=== PATIENT | female | born 1985 | race Caucasian/White ===

== ENCOUNTER 2018-05-10 13:13 | Emergency (ER) | payer MEDICAID, OTHER ==
[2018-05-10 13:52] VITALS: RESP 18; O2SAT 99; BMI 22.3
--- NOTE | 2018-05-10 15:27 | ED PDOC ---
Arrival/HPI - General Chief Complaint: ENT Problem Time Seen by Provider: 05/10/18 13:54 Historian: Patient - History of Present Illness Narrative History of Present Illness (Text): 05/10/18 13:56 32 year old female, with no significant past medical history, who presents to the emergency department complaining of a sore throat, left ear pain, generalized weakness, very big swollen gland on left side and losing her balance /falling on Tuesday. Patient notes she got up to go to the bathroom on Tuesday, when she fell and hit her head. Patient reports fever for last couple of days and loss of appetite. Patient denies any other complaints. Time/Duration: > week Symptom Onset: Sudden Symptom Course: Unchanged Activities at Onset: Light Context: Home Past Medical History - Provider Review Nursing Documentation Reviewed: Yes - Psychiatric Hx Substance Use: No - Anesthesia Hx Anesthesia: Yes Hx Anesthesia Reactions: No Hx Malignant Hyperthermia: No Family/Social History - Physician Review Nursing Documentation Reviewed: Yes Family/Social History: No Known Family HX Smoking Status: Light Smoker < 10 Cigarettes Daily Hx Alcohol Use: Yes Frequency of alcohol use: Socially Hx Substance Use: No Allergies/Home Meds Allergies/Adverse Reactions: Allergies No Known Allergies Allergy (Verified 05/10/18 14:32) Review of Systems - Physician Review All systems were reviewed & negative as marked: Yes - Review of Systems Constitutional: Fatigue (generalized weakness), Fevers (patient notes fever for past couple of days). absent: Normal Eyes: Normal ENT: Sore Throat, Other (Patient notes left ear pain and a very big swollen gland on left side of neck.). absent: Normal Respiratory: Normal. absent: SOB, Cough Cardiovascular: Normal. absent: Chest Pain Gastrointestinal: Appetite Changes (patient notes loss of appetite). absent: Normal, Diarrhea, Nausea, Vomiting Genitourinary Female: Normal Musculoskeletal: Normal. absent: Back Pain, Neck Pain Skin: Normal Neurological: Normal Endocrine: Normal Hemo/Lymphatic: Normal Psychiatric: Normal Physical Exam Vital Signs Reviewed: Yes Vital Signs Temp Pulse Resp BP Pulse Ox 05/10/18 19:48 98.2 F 61 18 118/78 99 05/10/18 18:26 98.5 F 66 18 115/74 99 05/10/18 16:23 98.7 F 65 18 117/78 99 05/10/18 15:14 99.3 F 68 18 113/75 99 05/10/18 13:51 98.5 F 72 18 115/84 99 Temperature: Afebrile Blood Pressure: Normal Pulse: Regular Respiratory Rate: Normal Appearance: Positive for: Well-Appearing, Non-Toxic Pain Distress: None Mental Status: Positive for: Alert and Oriented X 3 - Systems Exam Head: Present: Atraumatic, Normocephalic Pupils: Present: PERRL Extroacular Muscles: Present: EOMI Conjunctiva: Present: Normal Mouth: Present: Moist Mucous Membranes Neck: Present: Normal Range of Motion, Other (Super large lymph node in left anterior chain) Respiratory/Chest: Present: Clear to Auscultation, Good Air Exchange. No: Respiratory Distress, Accessory Muscle Use Cardiovascular: Present: Regular Rate and Rhythm, Normal S1, S2. No: Murmurs Abdomen: No: Tenderness, Distention, Peritoneal Signs Back: Present: Normal Inspection Upper Extremity: Present: Normal Inspection. No: Cyanosis, Edema Lower Extremity: Present: Normal Inspection. No: Edema Neurological: Present: GCS=15, CN II-XII Intact, Speech Normal Skin: Present: Warm, Dry, Normal Color. No: Rashes Psychiatric: Present: Alert, Oriented x 3, Normal Insight, Normal Concentration Medical Decision Making ED Course and Treatment: 05/10/18 13:56 Impression: 32 year old female who presents to the emergency department complaining of sore throat, left ear pain, really big swollen gland on left side and fever for last couple of days. Differential Diagnosis included but are not limited to: Pharyngitis vs. Peritonsillar abscess. Plan: -- Labs -- CT of head w/o contrast -- CT of neck soft tissue w/ contrast -- Blood culture -- Rapid Strep Group A antigen -- Reassess and disposition Progress Notes: 05/10/18 18:[address] without Contrast: Creator : Sara Daniel MD FINDINGS: HEMORRHAGE:No intracranial hemorrhage. BRAIN: No mass effect or edema. No atrophy or chronic microvascular ischemic changes. VENTRICLES: No hydrocephalus. CALVARIUM: Unremarkable. PARANASAL SINUSES: Unremarkable as visualized. No significant inflammatory changes. MASTOID AIR CELLS: Unremarkable as visualized. No inflammatory changes. OTHER FINDINGS: None. IMPRESSION: No acute intracranial pathology identified. Neck CT with Contrast: Creator : Beau Whitaker MD FINDINGS: NASOPHARYNX: Mild asymmetric soft tissue swelling lower nasopharynx without focal mass or discrete parapharyngeal or prevertebral abscess. SUPRAHYOID NECK: Asymmetric enlargement of the left lingual and palate seen tonsil. The inflammatory changes extend to the level of the nasopharynx. No parapharyngeal or tonsillar abscess identified. INFRAHYOID NECK: Unremarkable larynx, hypopharynx, and supraglottic space. Vocal cords intact. MASS: None. GLANDS: Parotid and submandibular glands unremarkable. Normal size thyroid gland , without nodule. LYMPH NODES: No significant lymphadenopathy identified. CERVICAL SPINE: No fracture or focal lesion. VASCULAR STRUCTURES: Unremarkable. OTHER FINDINGS: None. IMPRESSION: Tonsillar enlargement without discrete tonsillar or parapharyngeal abscess. The findings are asymmetric involving the left greater than right nasopharynx and oral pharyngeal regions. - Lab Interpretations Lab Results: 05/10/18 15:10 05/10/18 15:10 Lab Results 05/10/18 15:26: pO2 34, VBG pH 7.37, VBG pCO2 48.0, VBG HCO3 27.7, VBG Total CO2 29.2 H, VBG O2 Sat (Calc) 71.7 H, VBG Base Excess 1.7, VBG Potassium 3.6, Glucose 86, Lactate 0.8, FiO2 21.0, Sodium 137.0, Chloride 103.0, Venous Blood Potassium 3.6 05/10/18 15:10: Beta HCG, Quant < 2.39 05/10/18 15:10: Sodium 138, Potassium 3.8, Chloride 102, Carbon Dioxide 27, Anion Gap 13, BUN 11, Creatinine 0.6 L, Est GFR ( Amer) > 60, Est GFR ( Non-Af Amer) > 60, Random Glucose 89, Calcium 9.0, Phosphorus 3.7, Magnesium 1.9 , Total Bilirubin 0.4, AST 26, ALT 28, Alkaline Phosphatase 65, Total Protein 7.4, Albumin 4.2, Globulin 3.2, Albumin/Globulin Ratio 1.3 05/10/18 15:10: Grp A Beta Strep Ag Negative 05/10/18 15:10: WBC 10.5, RBC 4.59, Hgb 13.1, Hct 39.3, MCV 85.6, MCH 28.5, MCHC 33.3, RDW 13.6, Plt Count 306, MPV 8.3, Gran % 63.3, Lymph % (Auto) 26.5, [place] % (Auto) 4.9, Eos % (Auto) 5.0, Baso % (Auto) 0.3, Gran # 6.65 H, Lymph # ( Auto) 2.8, [place] # (Auto) 0.5, Eos # (Auto) 0.5, Baso # (Auto) 0.03 - RAD Interpretation Radiology Orders: 05/10/18 14:37 HEAD W/O CONTRAST [CT] Stat NECK SOFT TISSUE W/CONTRAST [CT] Stat - Medication Orders Current Medication Orders: Discontinued Medications Ampicillin Sodium/Sulbactam (Sodium 3 gm/ Sodium Chloride) 100 mls @ 100 mls/ hr IVPB STAT STA PRN Reason: Protocol Stop: 05/10/18 19:11 Last Admin: 05/10/18 18:43 Dose: 100 mls/hr eMAR Start Stop Document 05/10/18 18:43 EQ (Rec: 05/10/18 18:43 EQ [id number]) Intravenous Solution Start Date 05/10/18 Start Time 18:43 Methylprednisolone (Solu-Medrol) 125 mg IVP STAT STA Stop: 05/10/18 18:14 Last Admin: 05/10/18 18:43 Dose: 125 mg IVP Administration Document 05/10/18 18:43 EQ (Rec: 05/10/18 18:43 EQ [id number]) Charges for Administration # of IVP Administrations 1 - Scribe Statement The provider has reviewed the documentation as recorded by the Magalieibjolene uLis All medical record entries made by the Magalieibjolene were at my direction and personally dictated by me. I have reviewed the chart and agree that the record accurately reflects my personal performance of the history, physical exam, medical decision making, and the department course for this patient. I have also personally directed, reviewed, and agree with the discharge instructions and disposition. Disposition/Present on Arrival - Present on Arrival Any Indicators Present on Arrival: No History of DVT/PE: No History of Uncontrolled Diabetes: No Urinary Catheter: No History of Decub. Ulcer: No History Surgical Site Infection Following: None - Disposition Have Diagnosis and Disposition been Completed?: Yes Diagnosis: Pharyngitis, Cervical adenitis Disposition: HOME/ ROUTINE Disposition Time: 17:00 Patient Plan: Discharge Condition: GOOD Discharge Instructions (ExitCare): Sore Throat, Adult (DC) Additional Instructions: Yolanda - Please start the Augmentin tonight before bed. Use the motrin for pain. Return to us if problems. Follow up with your regular doctor later this week. Best- Dr. Steven Valle Prescriptions: Amoxicillin/Clavulanate [Augmentin 500 MG-125 MG] 1 tab PO TID #30 tab Ibuprofen [Motrin Tab] 800 mg PO TID #30 tab Referrals: Chip Rondon MD [Primary Care Provider] - Follow up with primary Forms: [facility] (Spanish), SCHOOL NOTE, WORK NOTE
[2018-05-10 15:32] LABS: VENOUS BLOOD GAS BASE EXCESS 1.7 mmol/L (0.0-2.0); VENOUS BLOOD GAS PO2 34 mm/Hg (30-55); VENOUS BLOOD PH 7.37 (7.32-7.43)
[2018-05-10 15:35] LABS: BASO # 0.03 K/mm3 (0.0-2.0); BASO % 0.3 % (0.0-3.0); EOS # 0.5 (0.0-0.7); GRAN # 6.65 (1.4-6.5); GRAN % 63.3 % (50.0-68.0); HEMOGLOBIN 13.1 g/dL (12.0-16.0); LYMPH # 2.8 (1.2-3.4); LYMPH % 26.5 % (22.0-35.0); MEAN CELL VOLUME 85.6 fl (80.0-105.0); MEAN CORPUSCULAR HEMOGLOBIN 28.5 pg (25.0-35.0); MEAN CORPUSCULAR HGB CONC 33.3 g/dl (31.0-37.0); MEAN PLATELET VOLUME 8.3 fl (7.0-11.0); MONO # 0.5 (0.1-0.6); MONO % 4.9 % (1.0-6.0); RBC 4.59 10^6/uL (3.5-6.1); RED CELL DISTRIBUTION WIDTH 13.6 % (11.5-14.5); WHITE BLOOD COUNT 10.5 10^3/ul (4.5-11.0)
[2018-05-10 15:43] LABS: ALB/GLOB RATIO 1.3 (1.1-1.8); ALBUMIN 4.2 g/dL (3.0-4.8); ALT/SGPT 28 U/L (7-56); AST/SGOT 26 U/L (14-36); BLOOD UREA NITROGEN 11 mg/dL (7-21); GFR NON-AFRICAN AMERICAN > 60
[2018-05-10] MEDS ORDERED: Iohexol 350 MG/100 ML VIAL ONE (17:27)
--- NOTE | 2018-05-10 17:55 | CT ---
Date of service: 05/10/2018 PROCEDURE: CT HEAD WITHOUT CONTRAST. HISTORY: Blunt Trauma to Right Orbit COMPARISON: None available. TECHNIQUE: Axial computed tomography images were obtained through the head/brain without intravenous contrast. Radiation dose: Total exam DLP = 741.24 mGy-cm. This CT exam was performed using one or more of the following dose reduction techniques: Automated exposure control, adjustment of the mA and/or kV according to patient size, and/or use of iterative reconstruction technique. FINDINGS: HEMORRHAGE: No intracranial hemorrhage. BRAIN: No mass effect or edema. No atrophy or chronic microvascular ischemic changes. VENTRICLES: No hydrocephalus. CALVARIUM: Unremarkable. PARANASAL SINUSES: Unremarkable as visualized. No significant inflammatory changes. MASTOID AIR CELLS: Unremarkable as visualized. No inflammatory changes. OTHER FINDINGS: None. IMPRESSION: No acute intracranial pathology identified.
--- NOTE | 2018-05-10 18:10 | CT ---
Date of service: 05/10/2018 PROCEDURE: CT NECK WITH CONTRAST HISTORY: Large L sided lymph node, ? Pharyngeal Asymmetry COMPARISON: None available. TECHNIQUE: CT of the neck with intravenous contrast. Coronal and sagittal reformats generated. Intravenous contrast dose: 100 cc Omnipaque 300 Radiation dose: DLP 499.41 mGy-cm This CT exam was performed using one or more of the following dose reduction techniques: Automated exposure control, adjustment of the mA and/or kV according to patient size, and/or use of iterative reconstruction technique. FINDINGS: NASOPHARYNX: Mild asymmetric soft tissue swelling lower nasopharynx without focal mass or discrete parapharyngeal or prevertebral abscess. SUPRAHYOID NECK: Asymmetric enlargement of the left lingual and palate seen tonsil. The inflammatory changes extend to the level of the nasopharynx. No parapharyngeal or tonsillar abscess identified. INFRAHYOID NECK: Unremarkable larynx, hypopharynx, and supraglottic space. Vocal cords intact. MASS: None. GLANDS: Parotid and submandibular glands unremarkable. Normal size thyroid gland, without nodule. LYMPH NODES: No significant lymphadenopathy identified. CERVICAL SPINE: No fracture or focal lesion. VASCULAR STRUCTURES: Unremarkable. OTHER FINDINGS: None. IMPRESSION: Tonsillar enlargement without discrete tonsillar or parapharyngeal abscess. The findings are asymmetric involving the left greater than right nasopharynx and oral pharyngeal regions.
[2018-05-10 19:49] VITALS: BP 118/78; PULSE 61; TEMP 98.2
== END 2018-05-10 20:20 | disposition home or self-care (01) ==
LOC: ED 13:13 → MERGE 13:13 → ED 20:20
DX: J02.9 Acute pharyngitis, unspecified (principal); I88.9 Nonspecific lymphadenitis, unspecified; F17.210 Nicotine dependence, cigarettes, uncomplicated
CPT/HCPCS: 70450; 70491; 80053; 82803; 83735; 84100; 84702; 85025; 87040; 87070; 87430; 96374; 99284; J0295; J2930; Q9967